=== PATIENT | male | born 1955 | race Hispanic/Latino ===

== ENCOUNTER 2017-08-04 09:54 | Emergency (ER) | payer BC ==
--- NOTE | 2017-08-04 10:12 | Emergency Department Report ---
Stated Complaint: SWOLLEN LEFT LEG Time Seen by Provider: 08/04/17 10:10 - HPI History of Present Illness: PT states he noticed LLE edema last night. PT states his foot has been mildly tender. Pt states he has a hx of DVT, 5 years ago. - ROS Review of Systems: + left foot pain + left leg swelling - Exam Physical Exam: + left lower ext edema noted MSE screening note: Focused history and physical exam performed. Due to findings the following was ordered: labs, us ED Disposition for MSE Condition: Stable
[2017-08-04 10:45] LABS: Basophils % (Auto) 0.7 % (0.0-1.8); Eosinophils % (Auto) 1.4 % (0.0-4.3); Hematocrit 35.7 % (35.5-45.6); Hemoglobin 11.9 gm/dl (11.8-15.2); Mean Corpuscular HGB Conc 34 % (32-34); Mean Corpuscular Hemoglobin 36 pg (28-32); Mean Corpuscular Volume 107 fl (84-94); Platelet Count 383 K/mm3 (140-440); Red Blood Count 3.33 M/mm3 (3.65-5.03); Red Cell Distribution Width 14.8 % (13.2-15.2); White Blood Count 6.7 K/mm3 (4.5-11.0)
[2017-08-04 10:46] LABS: Alanine Aminotransferase 10 units/L (7-56); Albumin 3.5 g/dL (3.9-5); Albumin/Globulin Ratio 1.3 %; Alkaline Phosphatase 50 units/L (35-129); Anion Gap 16 mmol/L; BUN/Creatinine Ratio 11.42; Blood Urea Nitrogen 8 mg/dL (9-20); Calcium 9.1 mg/dL (8.4-10.2); Carbon Dioxide 25 mmol/L (22-30); Chloride 105.7 mmol/L (98-107); Glucose 104 mg/dL (75-100); Potassium 4.4 mmol/L (3.6-5.0); Sodium 142 mmol/L (137-145); Total Protein 6.1 g/dL (6.3-8.2)
[2017-08-04 10:55] LABS: INR 1.09 (0.87-1.13)
[2017-08-04 10:57] LABS: Partial Thromboplastin Time 30.7 Sec. (24.2-36.6)
[2017-08-04 12:03] VITALS: BP 158/86
--- NOTE | 2017-08-04 12:31 | Emergency Department Report ---
HPI - General Chief Complaint: Extremity Injury, Lower Time Seen by Provider: 08/04/17 10:10 - HPI HPI: This is a 62-year-old male presents to the emergency department with complaint of left lower leg pain and swelling that he noticed since last night. He denies any trauma to the area. He has a previous history of DVT for which she was on 6 months of Coumadin/warfarin but the swelling and/or clot resolved and he is no longer on this medication and this occurred about 5 years ago. He also has a history of a previous neck injury. He has a primary care physician but cannot currently remember the name. No sick contacts at home. The patient did have a car ride from [facility], about 4 hours away, that occurred 3 weeks ago. ED Past Medical Hx - Past Medical History Hx Deep Vein Thrombosis: Yes - Surgical History Additional Surgical History: NECK - Social History Smoking Status: Never Smoker Substance Use Type: None - Medications Home Medications: Home Medications Medication Instructions Recorded Confirmed Last Taken Type Apixaban [Eliquis] 5 mg PO BID #28 tablet 08/04/17 Unknown Rx Apixaban [Eliquis] 5 mg PO BID #74 tablet 08/04/17 Unknown Rx Rivaroxaban [Xarelto] 15 mg PO BID #42 tablet 08/04/17 Unknown Rx ED Review of Systems ROS: Stated complaint: SWOLLEN LEFT LEG Other details as noted in HPI Comment: All other systems reviewed and negative Constitutional: denies: chills, fever Eyes: denies: eye pain, eye discharge, vision change ENT: denies: ear pain, throat pain Respiratory: denies: cough, shortness of breath, wheezing Cardiovascular: edema. denies: chest pain, palpitations Gastrointestinal: denies: abdominal pain, nausea, diarrhea Genitourinary: denies: urgency, dysuria Musculoskeletal: arthralgia, myalgia Skin: denies: rash, lesions Neurological: denies: headache, weakness Physical Exam - Physical Exam Vital Signs: Vital Signs 08/04/17 08/04/17 10:11 11:35 Temperature 98.9 F Pulse Rate 82 61 Respiratory 18 18 Rate Blood Pressure 147/89 Blood Pressure 158/86 [Right] O2 Sat by Pulse 98 100 Oximetry Physical Exam: GENERAL: The patient is well-developed well-nourished. HENT: Normocephalic. Atraumatic. Patient has moist mucous membranes. EYES: Extraocular motions are intact. Pupils equal reactive to light bilaterally. NECK: Supple. Trachea is midline. CHEST/LUNGS: Clear to auscultation. There is no respiratory distress noted. HEART/CARDIOVASCULAR: Regular. There is no tachycardia. There is no gallop rub or murmur. ABDOMEN: Abdomen is soft, nontender. Patient has normal bowel sounds. There is no abdominal distention. SKIN: There is a moderate amount of nonpitting swelling to the left lower extremity from the knee distally, especially when compared to the right lower extremity. NEURO: The patient is awake, alert, and oriented. The patient is cooperative. The patient has no focal neurologic deficits. The patient has normal speech. MUSCULOSKELETAL: There is no tenderness or deformity. There is no limitation range of motion. There is no evidence of acute injury. ED Course Vital Signs 08/04/17 08/04/17 10:11 11:35 Temperature 98.9 F Pulse Rate 82 61 Respiratory 18 18 Rate Blood Pressure 147/89 Blood Pressure 158/86 [Right] O2 Sat by Pulse 98 100 Oximetry ED Medical Decision Making - Lab Data Result diagrams: 08/04/17 10:15 08/04/17 10:15 - Radiology Data Radiology results: report reviewed Left lower extremity venous Doppler is positive for an acute nonocclusive DVT in the left mid superficial femoral vein extending to the popliteal vein and the proximal posterior tibial vein. - Medical Decision Making 62-year-old male presents with a one-day history of left leg pain and swelling. Venous Doppler positive for acute DVT. Labs are unremarkable. Vital signs stable. The patient was started on blood thinners. The issue that the patient is going to [facility]. For this reason I felt that a medication such as Xarelto to go or Eloquist is a good choice as it will be therapeutic IMMEDIATELY and does not need routine testing. The patient's daughter came here bedside and is trying to get him his medications. Both of these medications have thus far been rejected by insurance they may need prior authorization's. The same would be true of heparin injections. The patient most likely would be able to take Coumadin and/or warfarin but there is no medical capabilities at a hospital for them to find a therapeutic INR. Eventually she was given a one-week prescription of the Eloquist and may pay out -of-pocket until she is able to get him into a primary care physician or prior authorization. - Differential Diagnosis DVT, Venous stasis, Cellulitis Critical Care Time: No Critical care attestation.: If time is entered above; I have spent that time in minutes in the direct care of this critically ill patient, excluding procedure time. ED Disposition Clinical Impression: Hypertension Qualifiers: Hypertension type: essential hypertension Qualified Code(s): I10 - Essential ( primary) hypertension DVT (deep venous thrombosis) Qualifiers: DVT location: lower extremity Affected thrombotic vein of extremity: unspecified vein of extremity Chronicity: acute Laterality: left Qualified Code( s): I82.402 - Acute embolism and thrombosis of unspecified deep veins of left lower extremity Disposition: - TO HOME OR SELFCARE Is pt being admited?: No Condition: Stable Instructions: Deep Venous Thrombosis (ED), Hypertension (ED) Additional Instructions: Please follow-up with your primary care doctor in the next few days. Take the Xarelto as prescribed. Starting this medication will make you more prone to bleeding, as it is a blood thinner, and therefore you should be extra careful. Return to the emergency Department with any worsening of your symptoms, chest pain or shortness of breath, or any acute distress. Prescriptions: Apixaban [Eliquis] 5 mg PO BID #74 tablet Apixaban [Eliquis] 5 mg PO BID #28 tablet Rivaroxaban [Xarelto] 15 mg PO BID #42 tablet Referrals: PRIMARY CARE, [Primary Care Provider] - 3-5 Days Time of Disposition: 12:33
[2017-08-04] MEDS ORDERED: XARELTO PO ONE (12:41)
--- NOTE | 2017-08-05 07:52 | Vascular Lab Report ---
Left Lower Extremity Venous Duplex Study: Reason for Exam: Swelling of the left lower extremity. Comments on the Right: A limited duplex study was done of the proximal veins of the right lower extremity. All veins visualized are freely compressible without evidence of internal echogenicity. Flow is spontaneous and phasic throughout. No evidence of acute or chronic thrombus is seen in any of the vessels visualized. Comments on the Left: Deep venous thrombosis is noted starting in the posterior tibial vein and extending into the popliteal and femoral veins.. The remaining veins visualized are freely compressible without evidence of internal echogenicity. Spontaneous and phasic flow is present proximally. Impression: Deep venous thrombosis in the left lower extremity
== END 2017-08-04 13:10 | disposition home or self-care (01) ==
LOC: ED 09:54
DX: I82.402 Acute embolism and thrombosis of unspecified deep veins of left lower extremity (principal); I10 Essential (primary) hypertension
CPT/HCPCS: 36415; 80053; 85025; 85610; 85730